=== PATIENT | male | born 1975 ===

== ENCOUNTER 2023-12-28 05:07 | Day surgery (SDC) | payer OTHER ==
[2023-12-26 14:09] VITALS: BMI 32.4
[2023-12-28 12:06] VITALS: TEMP 98
[2023-12-28 12:10] VITALS: BP 112/55; PULSE 80; RESP 14
== END 2023-12-28 12:10 | disposition home or self-care (01) ==
LOC: JASU-ENDO 05:07
PROVIDERS: ATTEND Internal Medicine Gastroenterology
PROC: 0DJD8ZZ Inspection of Lower Intestinal Tract, Via Natural or Artificial Opening Endoscopic (ICD-10-PCS; principal; 2023-12-28 11:00)
DX: Z12.11 Encounter for screening for malignant neoplasm of colon (principal)